=== PATIENT | female | born 2000 | race Caucasian/White ===

== ENCOUNTER 2024-12-10 08:40 | Outpatient (RCR) | payer BC, MEDICAID, SELFPAY | END 2025-03-08 23:59 | disposition home or self-care (01) | LOC: ANHLAB 08:40 | PROVIDERS: Visit Provider Obstetrics & Gynecology | DX: O20.0 Threatened abortion (principal); Z3A.00 Weeks of gestation of pregnancy not specified | CPT/HCPCS: 36415; 84702 ==